=== PATIENT | female | born 1960 | race Native Hawaiian/Other Pacific Islander ===

== ENCOUNTER 2019-08-18 15:50 | Outpatient (CLI) | payer OTHER ==
[2019-08-18 16:23] LABS: PLATELET COUNT 343 K/uL (152-353)
[2019-08-18 16:32] LABS: POTASSIUM 5.1 mmol/L (3.6-5.2)
== END 2019-08-18 19:12 | disposition home or self-care (01) ==
LOC: LAB 15:50
PROVIDERS: Nurse Practitioner Adult Health
DX: Z00.00 Encounter for general adult medical examination without abnormal findings (principal); E11.9 Type 2 diabetes mellitus without complications; I10 Essential (primary) hypertension; E78.5 Hyperlipidemia, unspecified; M19.90 Unspecified osteoarthritis, unspecified site; E03.9 Hypothyroidism, unspecified; R53.81 Other malaise; R53.83 Other fatigue; Z79.899 Other long term (current) drug therapy
CPT/HCPCS: 80053; 80061; 83036; 84439; 84443; 84481; 85027

== ENCOUNTER 2019-11-23 11:57 | Outpatient (CLI) | payer OTHER ==
[2019-11-23 12:37] LABS: PLATELET COUNT 368 K/uL (152-353)
[2019-11-23 12:58] LABS: POTASSIUM 4.2 mmol/L (3.6-5.2)
== END 2019-11-23 19:54 | disposition home or self-care (01) ==
LOC: LAB 11:57
PROVIDERS: Nurse Practitioner Adult Health
DX: E11.9 Type 2 diabetes mellitus without complications (principal); E03.9 Hypothyroidism, unspecified; E78.5 Hyperlipidemia, unspecified; I10 Essential (primary) hypertension
CPT/HCPCS: 80053; 80061; 83036; 84439; 84443; 85027

== ENCOUNTER 2020-02-23 15:25 | Outpatient (CLI) | payer OTHER | END 2020-02-24 00:01 | disposition home or self-care (01) | LOC: LAB 15:25 | PROVIDERS: Nurse Practitioner Family | DX: E11.9 Type 2 diabetes mellitus without complications (principal); E03.9 Hypothyroidism, unspecified; E78.5 Hyperlipidemia, unspecified; I10 Essential (primary) hypertension; F41.9 Anxiety disorder, unspecified; M19.90 Unspecified osteoarthritis, unspecified site; B36.0 Pityriasis versicolor; N95.9 Unspecified menopausal and perimenopausal disorder; R53.82 Chronic fatigue, unspecified | CPT/HCPCS: 80061; 82607; 83036 ==

== ENCOUNTER 2020-08-29 12:58 | Emergency (ER) | payer OTHER ==
[~2020-08-29] VITALS: Ht 165.1 cm; Wt 150.1 kg
[2020-08-29 13:07] VITALS: BP 120/60; TEMP 97
[2020-08-29 13:57] LABS: PLATELET COUNT 313 K/uL (152-353)
[2020-08-29 14:13] LABS: POTASSIUM 4.5 mmol/L (3.6-5.2); SODIUM 138 mmol/L (136-145)
== END 2020-08-29 16:25 | disposition home or self-care (01) ==
LOC: ED 12:58
PROVIDERS: Emergency Medicine Emergency Medical Services
DX: J20.9 Acute bronchitis, unspecified (principal); N39.0 Urinary tract infection, site not specified; J45.998 Other asthma; Z20.828 Contact with and (suspected) exposure to other viral communicable diseases
CPT/HCPCS: 36600; 80053; 81000; 82805; 83880; 84484; 85027; 85379; 87040; 87086; 87088; 87502; 87635; 93005; 96365; 96375; 99284; J0696; J2060; J2930; Q9963; U0003

== ENCOUNTER 2020-09-05 12:26 | Outpatient (CLI) | payer OTHER ==
[2020-09-05 13:08] LABS: POTASSIUM 4.3 mmol/L (3.6-5.2)
== END 2020-09-05 22:15 | disposition home or self-care (01) ==
LOC: LABW 12:26 → RESP 13:00 → LABW 22:15
PROVIDERS: ATTEND Internal Medicine Pulmonary Disease
DX: R60.0 Localized edema (principal)
CPT/HCPCS: 36415; 80048; 83735; 83880

== ENCOUNTER 2020-09-29 11:21 | Outpatient (CLI) | payer OTHER | END 2020-09-29 22:20 | disposition home or self-care (01) | LOC: RAD 11:21 | PROVIDERS: ATTEND Internal Medicine Pulmonary Disease | DX: J12.89 Other viral pneumonia (principal); G47.33 Obstructive sleep apnea (adult) (pediatric) ==

== ENCOUNTER 2020-11-16 15:25 | Outpatient (CLI) | payer OTHER ==
[2020-11-16 15:57] LABS: POTASSIUM 4.7 mmol/L (3.6-5.2)
== END 2020-11-16 20:33 | disposition home or self-care (01) ==
LOC: LAB 15:25
PROVIDERS: ATTEND Nurse Practitioner Family
DX: E03.9 Hypothyroidism, unspecified (principal); E78.5 Hyperlipidemia, unspecified; M19.90 Unspecified osteoarthritis, unspecified site; F41.9 Anxiety disorder, unspecified; I10 Essential (primary) hypertension; E11.9 Type 2 diabetes mellitus without complications; J98.4 Other disorders of lung
CPT/HCPCS: 80053; 80061; 82306; 83036; 84443; 84481

== ENCOUNTER 2020-12-20 16:50 | Outpatient (CLI) | payer OTHER ==
[2020-12-27 16:50] LABS: POTASSIUM 4.7 mmol/L (3.6-5.2); SODIUM 140 mmol/L (136-145)
== END 2020-12-20 23:59 | disposition home or self-care (01) ==
LOC: LAB 16:50
PROVIDERS: ATTEND Nurse Practitioner Family
DX: N28.9 Disorder of kidney and ureter, unspecified (principal)
CPT/HCPCS: 80053; 81000; 82043; 82570; 87088

== ENCOUNTER 2021-02-01 16:02 | Outpatient (CLI) | payer OTHER ==
[2021-02-01 16:36] LABS: PLATELET COUNT 384 K/uL (152-353)
[2021-02-01 17:01] LABS: POTASSIUM 4.8 mmol/L (3.6-5.2)
== END 2021-02-01 19:06 | disposition home or self-care (01) ==
LOC: LAB 16:02
PROVIDERS: ATTEND Internal Medicine Nephrology
DX: I12.9 Hypertensive chronic kidney disease with stage 1 through stage 4 chronic kidney disease, or unspecified chronic kidney disease (principal); N18.31 Chronic kidney disease, stage 3a; E11.9 Type 2 diabetes mellitus without complications; E78.2 Mixed hyperlipidemia
CPT/HCPCS: 80053; 80061; 82306; 82570; 82728; 83036; 83540; 83550; 83970; 84100; 84155; 84439; 84443; 85027